=== PATIENT | female | born 2000 | race African-American/Black ===

== ENCOUNTER 2018-04-19 09:25 | Emergency (ER) | payer OTHER ==
--- NOTE | 2018-04-19 09:52 | ED ---
Abdominal Pain/Female - HPI Summary HPI Summary: This patient is a 17 year old F presenting to [facility] with a chief complaint of non-radiating epigastric pain, N,V and diarrhea since 04/17/18 after eating [employer]. A few hours after eating, she vomited undigested food x2 with improvement in pain. Yesterday day the pain returned after eating a salad around noon and she has not eaten since then. Patient additionally reports diarrhea that is watery. Patient denies bloody stool, recent travel, urinary symptoms, fever, and recent sick contacts. No one else ate the same food with her. Pain rated 7/10 in severity. Pt took Aleve x2 around 0500 this morning without relief. PMHx, of stomach ulcers dx on 05/02/15. LNMP 03/28/18. No current medications. - History of Current Complaint Chief Complaint: EDAbdPain Stated Complaint: ABD PAIN Time Seen by Provider: 04/19/18 09:50 Hx Obtained From: Patient Hx Last Menstrual Period: 03/28/18 ?: No Onset/Duration: Sudden Onset, Lasting Days Timing: Constant Severity Initially: Moderate Severity Currently: Moderate Pain Intensity: 7 Pain Scale Used: 0-10 Numeric Location: Epigastric Radiates: No Character: Burning Aggravating Factor(s): Food Alleviating Factor(s): Nothing Associated Signs and Symptoms: Positive: Vomiting, Diarrhea. Negative: Fever, Blood in Stool, Urinary Symptoms Allergies/Adverse Reactions: Allergies Allergy/AdvReac Type Severity Reaction Status Date / Time No Known Allergies Allergy Verified 04/19/18 09:39 PMH/Surg Hx/FS Hx/Imm Hx Previously Healthy: Yes GI History: Reports: Hx Ulcer - gastric 2016 EENT History: Denies: Hx Deafness - Surgical History Surgery Procedure, Year, and Place: none reported Infectious Disease History: No Infectious Disease History: Denies: Traveled Outside the [place] in Last 30 Days - Family History Known Family History: Positive: Hypertension - pre-hypertension father - Social History Occupation: Student Lives: Dormitory/Roommates Alcohol Use: None Hx Substance Use: No Hx Tobacco Use: No Review of Systems Negative: Fever Cardiovascular: Negative Respiratory: Negative Positive: Abdominal Pain, Vomiting, Diarrhea Positive: no symptoms reported Skin: Negative Neurological: Negative Psychological: Normal All Other Systems Reviewed And Are Negative: Yes Physical Exam - Summary Physical Exam Summary: Appearance: Ill-appearing, moderate pain distress, well-nourished Skin: Warm, color reflects adequate perfusion, dry Head: Normal Head/Face inspection, atraumatic Eyes: Conjunctiva clear ENT: dry oral mucosa Neck: Supple, no nodes, no JVD Respiratory: Lungs clear, normal breath sounds, no respiratory distress Cardio: RRR, No murmur, pulses normal, brisk capillary refill Abdomen: Soft, epigastric tenderness, no rebound, no guarding, no masses, non- distended Bowel sounds: Present Musculoskeletal: Strength Intact/ROM intact, no calf tenderness, no edema. Psychological: Normal Neuro: Alert, muscle tone normal, no focal deficit Triage Information Reviewed: Yes Vital Signs On Initial Exam: Initial Vitals Temp Pulse Resp BP Pulse Ox 99.0 F 100 16 114/76 99 04/19/18 09:36 04/19/18 09:36 04/19/18 09:36 04/19/18 09:36 04/19/18 09:36 Vital Signs Reviewed: Yes Diagnostics - Vital Signs Vital Signs Temp Pulse Resp BP Pulse Ox 04/19/18 09:36 99.0 F 100 16 114/76 99 - Laboratory Result Diagrams: 04/19/18 10:28 04/19/18 10:28 Lab Statement: Any lab studies that have been ordered have been reviewed, and results considered in the medical decision making process. - CT A/P CT CT Interpretation Completed By: Radiologist Summary of CT Findings: RIGHT OVARIAN CYST. NORMAL APPENDIX. ED Physician has reviewed this report. Re-Evaluation - Re-Evaluation First Re-Evaluation Time: 10:50 Change: Worse Comment: Patient is nauseous. Nurse requets Zofran. second Re-Evaluation Time: 12:34 Change: Unchanged - Patient is in CT. thrid Re-Evaluation Time: 13:25 Change: Unchanged - Discussing work up results and discharge. Pt's pain is controlled. No vomiting or diarrhea in the ED. Abdominal Pain Fem Course/Dx - Course Course Of Treatment: 17 year old F presenting to [facility] with a chief complaint of non-radiating epigastric pain since 04/17/18 with vomiting X2 with improvement in pain. Yesterday day the pain returned after eating a salad around noon and she has not eaten since then. Patient additionally reports watery diarrhea. Pt took Aleve x2 around 0500 this morning. PMHx, of stomach ulcers dx on 05/02/15. Bloodowork reveals, normal WBC count, Hgb 11.9, MCV 75, MCH 24, absolute lymph .7, INR 1.08, potassium 3.2, Magnesium 1.6L, C-reactive protien 25.94, normal amylase, and lipase, negative serum HCG. UA obtained. Patient given 1000mls NS IV, potassium 4o mEq po, zofran 4mg IV, 800mg magnesium po. CT A/P reveals, " RIGHT OVARIAN CYST. NORMAL APPENDIX." as per radiologist. Patient's symptoms improved. Results discussed with patient. Patient is agreeable with discharge and instructed to follow up with [facility]. Medications, allergies, and nursing notes reviewed. - Diagnoses Differential Diagnosis: Positive: Appendicitis, Constipation, Gall Bladder Disease, Irritable Bowel Syndrome, Pancreatitis, Peptic Ulcer Disease, Other - dysentery Provider Diagnoses: Abdominal pain, Hypomagnesemia, Gastroenteritis, Hypokalemia, Right ovarian cyst Discharge - Sign-Out/Discharge Documenting (check all that apply): Patient Departure - discharge Patient Received Moderate/Deep Sedation with Procedure: No - Discharge Plan Condition: Stable Disposition: HOME Prescriptions: Ranitidine TAB (NF) [Zantac TAB (NF)] 300 mg PO BEDTIME #30 tab Patient Education Materials: Ovarian Cyst (ED), Gastroenteritis (ED), Acute Abdominal Pain (ED) Referrals: [facility] - [facility]ine HAYES [[employer], APPLICATION, OTHER] - 2 Weeks Additional Instructions: We have given you a copy of your CT. Your labs will be included with these discharge papers. We have recommended that your resume the zantac at bedtime that you used to take for gastritis. Do not take Aleve or ibuprofen. You may use acetaminophen (Tylenol) for pain. Return to the ER if you have any new or worsening symptoms. - Billing Disposition and Condition Condition: STABLE Disposition: Home - Attestation Statements Document Initiated by Scribe: Yes Documenting Scribe: Kylah Ramsey Provider For Whom Scribe is Documenting (Include Credential): Alisson Cid Scribe Attestation: Kylah Kirk, scribed for Alisson Cid on 04/20/18 at 2319. Scribe Documentation Reviewed: Yes Provider Attestation: The documentation as recorded by the scribe, Kylah Ramsey accurately reflects the service I personally performed and the decisions made by , Alisson Cid Status of Scribchanel Document: Viewed
[2018-04-19 10:35] LABS: Hematocrit 38 % (35-47); Hemoglobin 11.9 g/dl (12.0-16.0); Mean Corpuscular HGB Conc 31 g/dl (31-36); Mean Corpuscular Hemoglobin 24 pg (27-31); Mean Corpuscular Volume 75 fL (80-97); Mean Platelet Volume 7.4 fL (7.4-10.4); Platelet Count 254 10^3/ul (150-450); Red Blood Count 5.04 10^6/ul (4.00-5.40); Red Cell Distribution Width 14 % (10.5-15)
[2018-04-19 10:41] LABS: INR 1.08 (0.77-1.02)
[2018-04-19] MEDS ORDERED: NS 0.9% 1000 ML** 1,000 ML IV ONE (10:49)
[2018-04-19] MEDS ORDERED: Ondansetron INJ* 2 MG/ML VIAL IV ONE (10:50)
[2018-04-19 11:00] LABS: ALT 9 U/L (7-52); AST 14 U/L (13-39); Albumin 4.1 g/dL (3.2-5.2); Albumin/Globulin Ratio 1.4 (1-3); Alkaline Phosphatase 77 U/L (34-104); Amylase 57 U/L (29-103); Anion Gap 8 mmol/L (2-11); BUN/Creatinine Ratio 16.3 (8-20); Blood Urea Nitrogen 13 mg/dL (6-24); C Reactive Protein 25.94 mg/L (<8.01); CO2 Carbon Dioxide 21 mmol/L (22-32); Calcium 9.2 mg/dL (8.6-10.3); Chloride 107 mmol/L (101-111); Creatine Kinase 76 U/L (10-223); EGFR African American 111.8 (>60); EGFR Non-African American 92.4 (>60); Glucose 81 mg/dL (70-100); Magnesium 1.6 mg/dL (1.9-2.7); Potassium 3.2 mmol/L (3.5-5.0); Sodium 136 mmol/L (135-145); Total Protein 7.1 g/dL (6.4-8.9)
[2018-04-19 11:07] LABS: HCG Pregnancy < 0.60 mIU/mL
[2018-04-19 11:49] LABS: Lymphocytes % 14 %; Monocytes % 12 %; Neutrophil % 69 %; Platelet Morphology Large
[2018-04-19 11:50] LABS: ABS Neutrophils 3.45 10^3/ul (1.5-7.7)
[2018-04-19 11:51] LABS: ABS Eosinophils 0.25 10^3/ul (0-0.6)
[2018-04-19] MEDS ORDERED: Iohexol 300* (CONTRAST) 10 ML SDV IV ONE (11:53)
[2018-04-19 12:57] LABS: Urine Appearance Cloudy; Urine Bacteria 1+ (Absent); Urine Bilirubin Negative (Negative); Urine Blood 1+ (Negative); Urine Color Yellow; Urine Glucose Negative (Negative); Urine Ketones 2+ (Negative); Urine Nitrite Negative (Negative); Urine Protein Negative (Negative); Urine Red Blood Cell 1+(3-5/hpf) (Absent); Urine Specific Gravity 1.019 (1.010-1.030); Urine Squamous Epithelial Cell Present (Absent); Urine Urobilinogen Positive (Negative); Urine White Blood Cell Trace(0-5/hpf) (Absent)
[2018-04-19] MEDS ORDERED: Magnesium Oxide TAB* 400 MG PO ONE (13:12)
[2018-04-19] MEDS ORDERED: Potassium Chlor TAB* 20 MEQ TAB.ER PO ONE (13:12)
[2018-04-19 13:33] VITALS: BP 108/72
== END 2018-04-19 13:39 | disposition home or self-care (01) ==
LOC: ED 09:25
DX: K52.9 Noninfective gastroenteritis and colitis, unspecified (principal); E83.42 Hypomagnesemia; E87.6 Hypokalemia; N83.201 Unspecified ovarian cyst, right side; R10.13 Epigastric pain; Z32.02 Encounter for pregnancy test, result negative
CPT/HCPCS: 36415; 74177; 80053; 81003; 81015; 82150; 82550; 83605; 83690; 83735; 84702; 85025; 85060; 85610; 86140; 87086; 96361; 96374; 99283; J2405; Q9967

== ENCOUNTER 2019-01-29 17:29 | Emergency (ER) | payer OTHER ==
[2019-01-29] MEDS ORDERED: Pseudoephedrine TAB* 60 MG PO ONE (18:26)
[2019-01-29] MEDS ORDERED: guaiFENesin ER TAB 600 MG PO ONE (18:26)
--- NOTE | 2019-01-29 18:26 | ED ---
Complex/Multi-Sys Presentation - HPI Summary HPI Summary: 18-year-old -[place] female with no significant past medical history presents to the emergency department today with a cough, fever, 2 days of aches and pains from her student health center at [facility]. She was seen and evaluated at her Health Center and had blood work, influenza swab and a chest x- ray done. Chest x-ray showed no acute cardiopulmonary pathology. Influenza negative. CBC showed white blood cell count of 5.3 and no leukocytosis. There is no evidence of electrolyte abnormalities. She states she was sent here today because of her tachycardia during her appointment at her health clinic. She states her heart rate was 130. Today in the emergency department her heart rate is 88. She denies chest pain, abdominal pain, nausea, vomiting, diarrhea, pain with urination. - History Of Current Complaint Chief Complaint: EDFluSymptoms Time Seen by Provider: 01/29/19 18:08 Hx Obtained From: Patient Onset/Duration: Sudden Onset, Lasting Days Timing: Constant Severity Currently: Moderate Severity Initially: Moderate Character: Pressure Associated Signs And Symptoms: Positive: Cough, Fever. Negative: Nausea, Vomiting, Diarrhea, Abdominal Pain - Allergies/Home Medications Allergies/Adverse Reactions: Allergies Allergy/AdvReac Type Severity Reaction Status Date / Time No Known Allergies Allergy Verified 04/19/18 09:39 PMH/Surg Hx/FS Hx/Imm Hx Endocrine/Hematology History: Denies: Hx Diabetes Cardiovascular History: Denies: Hx Hypertension GI History: Reports: Hx Ulcer - gastric 2016 History: Denies: Hx Renal Disease Sensory History: Denies: Hx Deafness - Surgical History Surgery Procedure, Year, and Place: none reported Infectious Disease History: No Infectious Disease History: Denies: Traveled Outside the [place] in Last 30 Days - Family History Known Family History: Positive: Hypertension - pre-hypertension father - Social History Alcohol Use: None Hx Substance Use: No Substance Use Type: Reports: None Hx Tobacco Use: No Smoking Status (MU): Never Smoked Tobacco Review of Systems Positive: Fever, Fatigue Eyes: Negative Positive: Nasal Discharge Cardiovascular: Negative Positive: Cough Gastrointestinal: Negative Genitourinary: Negative Positive: Myalgia Skin: Negative Neurological: Negative Psychological: Normal All Other Systems Reviewed And Are Negative: Yes Physical Exam Triage Information Reviewed: Yes Vital Signs On Initial Exam: Initial Vitals Temp Pulse Resp BP Pulse Ox 98.5 F 88 22 124/71 98 01/29/19 17:38 01/29/19 17:38 01/29/19 17:38 01/29/19 17:38 01/29/19 17:38 Vital Signs Reviewed: Yes Appearance: Positive: Well-Appearing, No Pain Distress, Well-Nourished Skin: Positive: Warm, Skin Color Reflects Adequate Perfusion Eyes: Positive: EOMI, GINGER ENT: Positive: Hearing grossly normal, Nasal congestion. Negative: Pharyngeal erythema Neck: Positive: Nontender Respiratory/Lung Sounds: Positive: Clear to Auscultation, Breath Sounds Present Cardiovascular: Positive: RRR, S1, S2 Abdomen Description: Positive: Nontender, Soft Bowel Sounds: Positive: Present Musculoskeletal: Positive: Strength/ROM Intact Neurological: Positive: Sensory/Motor Intact, Alert, Oriented to Person Place, Time, Speech Normal Psychiatric: Positive: Normal AVPU Assessment: Alert Procedures - Sedation Patient Received Moderate/Deep Sedation with Procedure: No Diagnostics - Vital Signs Vital Signs Temp Pulse Resp BP Pulse Ox 01/29/19 17:38 98.5 F 88 22 124/71 98 - Laboratory Lab Statement: Any lab studies that have been ordered have been reviewed, and results considered in the medical decision making process. Complex Multi-Symp Course/Dx Course Of Treatment: Patient was evaluated in the emergency department today for upper respiratory infection. Patient was seen and examined vitals are stable and she is afebrile. An EKG was done which showed normal sinus rhythm at a rate of [address] elevation. Normal axis with a normal CT and QT interval. No evidence of Brugada or WPW. Laboratory studies were drawn at [facility] and were within normal limits with no evidence of leukocytosis, electrolyte abnormality, or hyperglycemia. A chest x-ray was done at [facility] which was also negative for acute cardiopulmonary pathology. The patient was given Mucinex and pseudoephedrine for her upper respiratory infection and told to follow-up with her campus clinic on Saturday for further evaluation of her symptoms. She is told to return to the emergency department immediately if she developed any new or worsening symptoms. - Diagnoses Differential Diagnoses/HQI/PQRI: Urinary Tract Infection, Other - uri, PE Provider Diagnoses: URI (upper respiratory infection) Discharge ED - Sign-Out/Discharge Documenting (check all that apply): Patient Departure - Discharge Plan Condition: Stable Disposition: HOME Prescriptions: guaiFENesin ER TAB [Mucinex*] 600 mg PO BID #12 tab.er Pseudoephedrine TAB* [Sudafed TAB*] 30 mg PO TID #14 tab Patient Education Materials: Upper Respiratory Infection (ED) Referrals: No Primary Care Phys,NOPCP [Primary Care Provider] - Additional Instructions: You were seen in the emergency department and diagnosed with a upper respiratory infection. Upper respiratory infections are most commonly viral in origin and will resolve on their own in a few days. You also came to the emergency department with concerns for your heart rate however in the emergency department your heart rate was within normal limits. For alleviation of your symptoms from your upper respiratory infection please rest, drink plenty of fluid, take Mucinex and pseudoephedrine for symptom relief. You may also take ibuprofen 400 mg every 4 hours as needed for fever or pain. Please follow-up with your Health clinic in 2-3 days for further evaluation and management of your symptoms. Please return to the emergency department immediately if you develop any new or worsening symptoms. - Billing Disposition and Condition Condition: STABLE Disposition: Home
[2019-01-29 20:50] VITALS: BP 126/83
== END 2019-01-29 19:11 | disposition home or self-care (01) ==
LOC: ED 17:29
DX: J06.9 Acute upper respiratory infection, unspecified (principal)
CPT/HCPCS: 99282; A9270-GY